=== PATIENT | male | born 1955 | race African-American/Black ===

== ENCOUNTER 2016-05-23 07:48 | Outpatient (CLI) | payer OTHER ==
[2016-05-23 09:12] LABS: Calc. Creatinine Clearance 0 mL/min (70-130); Estimated GFR-MDRD Greater than 90
== END 2016-05-23 07:49 ==
LOC: MADLAB 07:48
PROVIDERS: ATTEND Internal Medicine Cardiovascular Disease
DX: I71.2 Thoracic aortic aneurysm, without rupture (principal)
CPT/HCPCS: 36415; 82565